=== PATIENT | female | born 1955 ===

== ENCOUNTER 2018-09-22 07:48 | Outpatient (CLI) | payer OTHER | END 2018-09-22 07:56 | disposition home or self-care (01) | LOC: TOM 07:48 | DX: E03.8 Other specified hypothyroidism (principal); I10 Essential (primary) hypertension; M54.5 Low back pain; Z01.810 Encounter for preprocedural cardiovascular examination; E78.49 Other hyperlipidemia; E55.9 Vitamin D deficiency, unspecified; E66.8 Other obesity; M89.8X8 Other specified disorders of bone, other site; R22.1 Localized swelling, mass and lump, neck; I87.2 Venous insufficiency (chronic) (peripheral) ==